=== PATIENT | female | born 1955 | race Caucasian/White ===

== ENCOUNTER → 2016-08-23 | Outpatient (CLI) | payer MEDICARE ==
[~2016-08-23] MED LIST: BACTRIM DS1 TAB PO; CARDIZEM90 MG PO; CELEXA20 MG PO; COUMADIN10 MG PO; COZAAR100 MG PO; DELTASONE10 MG PO; GUIATUSS AC 1515 ML PO; KEFLEX500 MG PO; LEVOTHROID (S200 MCG PO; LOPRESSOR50 MG PO; MAG-OX-400(241400 MG PO; MAGNESIUM-VIT1 EACH PO; NEOSPORIN1 PKT TOP; NORVASC5 MG PO; NYSTATIN1 EAC1 TOP; POTASSIUM GLUC500 MG PO; PROBIOTIC1 EAC1 PO; TYLENOL EXTRA500 MG PO
[2016-08-23 11:22] LABS: HEMATOCRIT 42.7 % (33.0-46.0); HEMOGLOBIN 13.6 g/dL (10.0-15.0); MCH 30.4 pg (27.0-34.0); MCHC 31.9 gm/dL (32.0-36.5); MCV 95.3 fl (83.0-98.0); MPV 10.4 fl (9.4-12.4); PLATELET COUNT 177 K/uL (150-450); RBC 4.48 M/uL (3.50-5.50); RDW-CV 14.1 % (11.9-14.6); WBC 6.1 K/uL (4.0-11.0)
[2016-08-23 11:43] LABS: ABSOLUTE NEUTROPHIL CT (ANC) 4.8 K/uL (1.8-7.8); LYMPHOCYTE # 0.8 K/uL (0.8-4.0); LYMPHOCYTE % 13 %; MONOCYTE # 0.5 K/uL (0.0-1.0); SEGMENTED NEUTROPHIL # 4.8 K/uL (1.8-7.8); SEGMENTED NEUTROPHIL % 78 %
[2016-08-23 11:56] LABS: INR - (THERAPEUTIC) 1.6 (0.9-1.1); PROTIME 17.7 SECONDS (9.6-11.1)
[2016-08-23 11:56] LABS: ALBUMIN 3.4 gm/dL (3.5-5.0); ALK PHOS 96 IU/L (33-138); ALT 28 IU/L (12-78); ANION GAP 12.5 (10.0-19.0); AST 20 IU/L (10-40); BLOOD UREA NITROGEN 12 mg/dL (6-24); CALCIUM 8.9 mg/dL (8.5-10.5); CHLORIDE 108 mMol/L (96-110); CO2 28 mMol/L (22-32); CREATININE 0.6 mg/dL (0.5-1.1); ESTIMATED GFR (MDRD EQUATION) > 60; POTASSIUM 4.5 mMol/L (3.7-5.1); SODIUM 144 mMol/L (135-145); TOTAL PROTEIN 6.9 g/dL (6.0-8.4)
== END | disposition disaster alternative care site (69) ==
LOC: LELM 10:36
PROVIDERS: Family Medicine
DX: J06.9 Acute upper respiratory infection, unspecified (principal); D68.318 Other hemorrhagic disorder due to intrinsic circulating anticoagulants, antibodies, or inhibitors; Z79.01 Long term (current) use of anticoagulants